=== PATIENT | male | born 1995 | race Caucasian/White ===

== ENCOUNTER 2020-06-14 20:27 | Emergency (ER) | payer SELFPAY ==
[2020-06-14 20:40] VITALS: BP 172/87; PULSE 72; RESP 14; TEMP 36.5; O2SAT 96; BMI 18.1
--- NOTE | 2020-06-14 21:47 | XRR_ITS ---
PROCEDURE INFORMATION: Exam: XR Abdomen, 1 View Exam date and time: 06/14/2020 9:56 PM Age: 24 years old Clinical indication: Localized; Patient HX: Left sided abdominal pain x 2 days TECHNIQUE: Imaging protocol: XR of the abdomen. Views: Frontal supine view of the abdomen. 1 View. COMPARISON: No relevant prior studies available. FINDINGS: Gastrointestinal tract: Normal. No bowel dilation. Bones/joints: Unremarkable. XR/XR [id number] IMPRESSION: No acute findings.
--- NOTE | 2020-06-14 21:54 | W.ED.ABDPA2 ---
HPI - Abdominal Pain General: Chief Complaint: Abdominal Pain Stated Complaint: left side issue Time Seen by Provider: 06/14/20 21:46 History of Present Illness: HPI narrative: 24-year-old male patient presents to the emergency department with complaints of left side abdominal pain. He reports pain for the past several weeks on and off. States pain comes and goes, reports pain was presents earlier but now resolved. States drinking fifth of whiskey almost daily for the past several months. Reports increased abdominal pain since use of magnesium citrate with vitamin D supplement. He denies fever chills, nausea vomiting. Denies recent use of antibiotics. MD elicited complaint: abdominal pain and flank pain (left) Pertinent past history: other (loose stool) Pain Consistency: intermittent Location: LLQ Severity: mild Quality: cramping and aching Migration to: LLQ and L flank Associated Symptoms: Reports change in bowel habits and change in stool character; Denies chills, diarrhea, dysuria, fever(s), heartburn and hematochezia Review of Systems General: Reports: 10 or more systems reviewed and unremarkable except in HPI and below Const: Denies: fever(s), chills, body aches, fatigue or malaise Eyes: Denies: blurry vision or eye redness ENMT: Denies: throat pain, dental pain or disequilibrium Card: Denies: chest pain, palpitations or irregular heart rhythm Resp: Denies: dyspnea, productive cough, non-productive cough or wheezing GI: Reports: change in bowel habits and change in stool character; Denies: heartburn, diarrhea or hematochezia : Denies: dysuria Musc: Denies: neck pain or back pain Skin/Breast: Denies: rash or pruritus Neuro: Denies: headache(s), weakness in extremities or behavioral changes Psych: Denies: anxiety or depression Rayshawn/Lymph: Denies: easy bruising PFSH ED PFSH: Social History Smoking and tobacco status: current every day smoker Physical Exam Const: COMMON NORMALS: no acute distress, patient oriented x3, healthy appearing and alert GENERAL APPEARANCE: cooperative, comfortable and well hydrated HENMT: COMMON NORMALS: normocephalic, Normal external nose present and moist oral mucous membranes HEAD & SCALP: normocephalic NOSE: Normal external nose present Eye: COMMON NORMALS: Equal, round and reactive pupils present and EOMs intact bilaterally GENERAL EYE: appearance normal, both eyes and all related structures PUPIL: Yes Equal, round and reactive pupils present Neck/C-Spine: COMMON NORMALS: full ROM and no lymphadenopathy GENERAL: Yes normal visual inspection and Yes trachea midline CERVICAL SPINE: Yes cervical ROM normal Lymph: LYMPHATIC: no lymphadenopathy noted Chest: COMMONS NORMALS: normal inspection of the chest Resp: COMMON NORMALS: normal respiratory effort and clear to auscultation bilaterally AUSCULTATION: clear to auscultation bilaterally Cardio: COMMON NORMALS: regular rhythm, S1 normal heart sound present, S2 normal heart sound present and Peripheral pulses 2+ throughout RHYTHM: regular rhythm HEART SOUNDS: S1 normal heart sound present and S2 normal heart sound present PERIPHERAL PULSES: Peripheral pulses 2+ throughout GI: COMMON NORMALS: Soft to palpation and non-tender INSPECTION: Yes normal to inspection PALPATION: Yes Soft to palpation, No Guarding due to palpation present (GI), No Hepatosplenomegaly present, No Splenomegaly present, No Rebound tenderness present and Yes Other GI palpation findings present (unable to reproduce pain to abdomen with palpation) : COMMON NORMALS: Yes no CVA tenderness BLADDER/KIDNEY EXAM: Yes no CVA tenderness Back/Pelvis: COMMON NORMALS: no CVA tenderness and thoracic and lumbar spine normal to inspection Extremity: COMMON NORMALS: normal to inspection and capillary refill normal Neuro: COMMON NORMALS: patient oriented x3 and no focal motor deficits SENSORIUM/ORIENTATION: Yes alert Psych: COMMON NORMALS: mental status grossly normal, Normal thought process present and cooperative ACTIVITY/MOTOR BEHAVIOR: Yes appropriate eye contact THOUGHT PROCESS: Normal thought process present Skin: COMMON NORMALS: no rashes or lesions noted and turgor normal GENERAL SKIN EXAM: no rashes or lesions noted and turgor normal Course Vital Signs: Vital signs: Vital Signs Temperature 97.7 F 06/14/20 20:40 Pulse Rate 72 06/14/20 23:04 Respiratory Rate 18 06/14/20 23:04 Blood Pressure 130/72 06/14/20 23:04 Pulse Oximetry 98 06/14/20 23:04 MDM - Abdominal Pain Lab Data: Labs: Lab Results 06/14/20 06/14/20 06/14/20 Range/Units 22:00 22:00 22:00 WBC 12.7 H (4.0-10.0) 10^3/ uL RBC 5.64 H (4.1-5.3) 10^6/u L Hgb 16.0 (11.7-16.6) g/dL Hct 47.6 (42.0-52.0) % MCV 84.4 (80-94) fL MCH 28.4 (28.0-34.0) pg MCHC 33.6 (30.0-36.0) g/dL RDW 12.0 L (12.1-15.1) % Plt Count 266 (130-400) 10^3/c mm MPV 11.0 H (7.4-10.4) fL Neut % (Auto) 59.7 % Lymph % (Auto) 28.9 % Whiteside % (Auto) 7.2 % Eos % (Auto) 3.4 % Baso % (Auto) 0.6 % Neut # (Auto) 7.55 (1.8-7.7) 10^3/u L Lymph # (Auto) 3.7 (0.8-4.8) 10^3/u L Whiteside # (Auto) 0.9 (0.2-0.9) 10^3/u L Eos # (Auto) 0.4 (0.0-0.8) 10^3/u L Baso # (Auto) 0.1 (0.0-0.1) 10^3/u L Nucleated RBC % (a uto) 0 % Nucleated RBCs # 0.0 /100WBC Sodium 138 (136-145) mmol/L Potassium 3.9 (3.5-5.1) mmol/L Chloride 97 L (98-107) mmol/L Carbon Dioxide 29 (22-29) mmol/L Anion Gap 15.9 (5-19) BUN 14 (6-20) mg/dL Creatinine 0.9 (0.7-1.2) mg/dL GFR Calculation 103.7 (90-130) mL/min Glucose 104 (65-115) mg/dL Calculated Osmolal ity 287 (285-295) mOsm/k g Calcium 10.4 (8.5-10.5) mg/dL Total Bilirubin 0.6 (0.15-1.2) mg/dL AST 23 (0-40) U/L ALT 19 (0-41) U/L Alkaline Phosphata se 55 (40-130) IU/L Total Protein 8.4 (6.6-8.7) g/dL Albumin 5.2 (3.5-5.2) g/dL Globulin 3.2 (1.3-4.6) g/dL Lipase 11 L (13-60) U/L Urine Color Yellow (Yellow) Urine Appearance Sl cloudy A (CLEAR) Urine pH 7 (5-7) Ur Specific Gravit y 1.015 (1.005-1.030) Urine Protein Neg (Negative) Urine Glucose (UA) Norm (Normal) Urine Ketones Negative (Negative) Urine Blood Neg (Negative) Urine Nitrate Negative (Negative) Urine Bilirubin Neg (Negative) Urine Urobilinogen Norm (Negative) mg/dL Ur Leukocyte Pretty ase Negative (Negative) Urine RBC None (0-2) /hpf Urine WBC None (0-5) /hpf Ur Squamous Epith Cells None (0-5) /hpf Amorphous Sediment 4+ /hpf Urine Bacteria Trace (NONE) /hpf Discharge Plan Discharge Patient Disposition: Home Clinical Impression: Abdominal pain Qualifiers: Abdominal location: left upper quadrant Qualified Code(s): R10.12 - Left upper quadrant pain Alcoholic gastritis Qualifiers: Chronicity: acute Gastritis bleeding: without bleeding Qualified Code(s): K29.20 - Alcoholic gastritis without bleeding Condition: Stable Prescriptions: New Pepcid 20 mg tablet 20 mg PO BID Qty: 30 RF: 0 Discharge Orders: Discharge Order (Routine); Ordered 06/14/20 Ordered By: Modesta Darnell Discharge Activity: Resume usual activity Patient Instructions: Gastritis (ED), Abuse of Alcohol (ED), Abdominal Pain (ED) Activity Restrictions/Additional Instructions: Return to the emergency department if you develop nausea vomiting Stop mag citrate with vitamin D as this can cause abdominal pain/cramping and loose stool May take [id number] vitamin D supplement without other additives, take as directed on bottle Avoid alcohol as this can cause stomach upset. Take Pepcid 20 minutes prior to each meal. Avoid fried greasy fatty foods until stomach/abdominal pain improves. Return to the emergency department if you develop worsening abdominal pain, nausea vomiting or blood in stool. Discharge Date/Time: 06/14/20 23:05 Coding Level of Care Code ED Mens Locker Room Attendant for Chg Fwd Exam Comprehensive
[2020-06-14 22:06] LABS: Basophils # 0.1 10^3/uL (0.0-0.1); Basophils % 0.6 %; Eosinophils # 0.4 10^3/uL (0.0-0.8); Eosinophils % 3.4 %; Hematocrit 47.6 % (42.0-52.0); Lymphocytes # 3.7 10^3/uL (0.8-4.8); Lymphocytes % 28.9 %; Mean Corpuscular HGB Conc 33.6 g/dL (30.0-36.0); Mean Corpuscular Hemoglobin 28.4 pg (28.0-34.0); Mean Corpuscular Volume 84.4 fL (80-94); Monocytes # 0.9 10^3/uL (0.2-0.9); Monocytes % 7.2 %; Neutrophils # 7.55 10^3/uL (1.8-7.7); Neutrophils % 59.7 %; Nucleated Red Blood Cells % 0 %; Platelet Count 266 10^3/cmm (130-400); Red Blood Count 5.64 10^6/uL (4.1-5.3); White Blood Count 12.7 10^3/uL (4.0-10.0)
[2020-06-14 22:16] LABS: Urine Color Yellow (Yellow)
[2020-06-14 22:17] LABS: Add Urine Microscopic? YES; Bilirubin Urine Neg (Negative); Blood Urine Neg (Negative); Glucose Urine UA Norm (Normal); Ketones Urine Negative (Negative); Leukocyte Esterase Urine Negative (Negative); Nitrate Urine Negative (Negative); Protein Urine Neg (Negative); Specific Gravity, Urine 1.015 (1.005-1.030); Urobilinogen Urine Norm (Negative); pH Urine 7 (5-7)
[2020-06-14 22:22] LABS: Add Urine Culture? No; Amorphous Sediment Urine 4+ /hpf; Bacteria Urine TRACE /hpf
[2020-06-14 22:26] LABS: Alanine Aminotransferase 19 U/L (0-41); Albumin Level 5.2 g/dL (3.5-5.2); Alkaline Phosphatase 55 IU/L (40-130); Anion Gap 15.9 (5-19); Aspartate Amino Transferase 23 U/L (0-40); Blood Urea Nitrogen 14 mg/dL (6-20); Calcium 10.4 mg/dL (8.5-10.5); Carbon Dioxide 29 mmol/L (22-29); Chloride 97 mmol/L (98-107); Creatinine Clr Calc Pharmacy 105.5582; Globulin 3.2 g/dL (1.3-4.6); Glomerular Filtration Rate 103.7 mL/min (90-130); Glucose 104 mg/dL (65-115); Lipase 11 U/L (13-60); Osmolality Calculated 287 mOsm/kg (285-295); Potassium 3.9 mmol/L (3.5-5.1); Sodium 138 mmol/L (136-145); Total Bilirubin 0.6 mg/dL (0.15-1.2); Total Protein 8.4 g/dL (6.6-8.7)
[2020-06-14 23:04] VITALS: BP 130/72; PULSE 72; RESP 18; O2SAT 98
== END 2020-06-14 23:05 | disposition home or self-care (01) ==
PROVIDERS: Emergency Provider Nurse Practitioner Family
DX: K29.20 Alcoholic gastritis without bleeding (principal); F17.210 Nicotine dependence, cigarettes, uncomplicated
CPT/HCPCS: 12345; 74018; 80053; 81001; 83690; 85025; 99282; 99283

== ENCOUNTER → 2020-07-01 15:43 | Outpatient (BNVA) | payer OTHER, SELFPAY | PROVIDERS: Visit Provider Nurse Practitioner Family | DX: Z20.828 Contact with and (suspected) exposure to other viral communicable diseases (principal); J06.9 Acute upper respiratory infection, unspecified | CPT/HCPCS: 87635 ==

== ENCOUNTER 2020-08-07 18:57 | Emergency (ER) | payer OTHER, SELFPAY ==
[2020-08-07 19:06] VITALS: BP 130/78; PULSE 85; RESP 15; TEMP 36.8; O2SAT 98; BMI 18.8
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
== END 2020-08-07 19:46 | disposition home or self-care (01) ==
PROVIDERS: Emergency Provider Nurse Practitioner Family
DX: Z72.51 High risk heterosexual behavior (principal); F17.210 Nicotine dependence, cigarettes, uncomplicated
CPT/HCPCS: 12345; 99281

== ENCOUNTER → 2020-09-14 15:35 | Outpatient (BNVA) | payer SELFPAY | PROVIDERS: Visit Provider Nurse Practitioner | DX: Z20.2 Contact with and (suspected) exposure to infections with a predominantly sexual mode of transmission (principal) | CPT/HCPCS: 81000; 87491; 87591 ==

== ENCOUNTER → 2021-04-21 18:18 | Outpatient (BNVA) | payer SELFPAY | PROVIDERS: Visit Provider Registered Nurse Neonatal Intensive Care | DX: S99.921A Unspecified injury of right foot, initial encounter (principal); X58.XXXA Exposure to other specified factors, initial encounter | CPT/HCPCS: 73630 ==

== ENCOUNTER → 2021-05-01 12:43 | Outpatient (BNVA) | payer OTHER, SELFPAY | PROVIDERS: PCP Family Medicine; Visit Provider Registered Nurse Neonatal Intensive Care | DX: Z20.822 Contact with and (suspected) exposure to COVID-19 (principal) | CPT/HCPCS: 87635 ==

== ENCOUNTER 2021-08-01 13:18 | Emergency (ER) | payer SELFPAY ==
[2021-08-01 13:30] VITALS: PULSE 84; RESP 18; TEMP 36.8; O2SAT 96; BMI 23.5
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
[2021-08-01 14:28] VITALS: BP 132/81; PULSE 84; RESP 18; O2SAT 96
[2021-08-01 16:01] VITALS: BP 131/74; PULSE 81; RESP 16; O2SAT 99
[2021-08-01 16:37] VITALS: PULSE 72; O2SAT 98
--- NOTE | 2021-08-03 12:27 | PC.SOCIAL ---
Referral from ED provider for patient to be seen by opthamology for orbital floor fx and laceration of eye duct. Called patient and he is okay for this to be scheduled. Called Dr Goetz and they could get him in today at 4pm but would be required to pay the $90 charge for the initial visit. Called patient and he indicates he has to go to work at 4 so cant go to appt. explained that it may be a week or two before he can be seen. He is okay with this. Called clinic back and patient is scheduled for 08/16/2021 at 8:30am. Tried to reach patient but no answer and unable to leave message. Will try back tomorrow.
== END 2021-08-01 16:35 | disposition home or self-care (01) ==
PROVIDERS: Emergency Provider Physician Assistant
DX: S02.32XA Fracture of orbital floor, left side, initial encounter for closed fracture (principal); S02.2XXA Fracture of nasal bones, initial encounter for closed fracture; S01.81XA Laceration without foreign body of other part of head, initial encounter; F17.210 Nicotine dependence, cigarettes, uncomplicated; Y04.2XXA Assault by strike against or bumped into by another person, initial encounter
CPT/HCPCS: 70486; 99283

== ENCOUNTER 2022-01-06 16:22 | Emergency (ER) | payer SELFPAY ==
[2022-01-06 16:27] VITALS: BP 148/78; PULSE 66; RESP 14; TEMP 36.6; O2SAT 96
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
--- NOTE | 2022-01-06 17:10 | W.ED.GENADLT ---
HPI - General Adult General: Chief complaint: General Medical Stated complaint: Feels like trimmers in his head with pains Time Seen by Provider: 01/06/22 17:10 History of Present Illness: 26-year-old male patient comes in today with abnormal sensation behind the left ear. 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 Patient reports no residual symptoms but over the last week he has had increasing discomfort and episodes of dizziness to the left side of his head. Patient does report increase in stress. Associated symptoms: Reports rash; Deny chest pain or dyspnea Review of Systems General: Reports: 10 or more systems reviewed and unremarkable except in HPI and below Const: Denies: fever(s) Card: Denies: chest pain Resp: Denies: dyspnea Musc: Denies: neck pain Skin/Breast: Reports: rash Neuro: Reports: dizziness PFS ED PFSH: Social History Smoking and tobacco status: current every day smoker Physical Exam Const: COMMON NORMALS: no acute distress and alert HENMT: COMMON NORMALS: Normal external nose present HEAD & SCALP: normal to inspection NOSE: Normal external nose present MOUTH: Normal oral and palatal mucosa present THROAT: posterior oropharynx normal Eye: COMMON NORMALS: Equal, round and reactive pupils present and EOMs intact bilaterally PUPIL: Yes Equal, round and reactive pupils present Neck/C-Spine: COMMON NORMALS: full ROM and no meningeal signs Resp: COMMON NORMALS: normal respiratory effort Cardio: COMMON NORMALS: regular rate and regular rhythm RATE: regular rate RHYTHM: regular rhythm GI: COMMON NORMALS: non-tender : COMMON NORMALS: Yes no CVA tenderness BLADDER/KIDNEY EXAM: Yes no CVA tenderness Back/Pelvis: COMMON NORMALS: no CVA tenderness and thoracic and lumbar spine normal to inspection Neuro: SENSORIUM/ORIENTATION: Yes alert MENINGEAL SIGNS: Yes no meningeal signs Skin: RASHES: other (Lacy rash to the chest wall, back, and upper extremities) Course Vital Signs: Vital signs: Vital Signs Temperature 97.8 F 01/06/22 16:27 Pulse Rate 66 01/06/22 16:27 Respiratory Rate 14 01/06/22 16:27 Blood Pressure 148/78 01/06/22 16:27 Pulse Oximetry 96 01/06/22 16:27 MDM - General Adult Medical Decision Making 26-year-old male patient comes in today for concerns of dizziness. Patient reports that he had a traumatic brain injury with skull fracture about 6 years ago. Over last couple weeks he has felt abnormal sensation high in the left ear where he had a fracture of the skull. Patient appears well. Vital signs are normal except for some mild elevation in blood pressure. Skin was warm and dry. No focal neurodeficits were noted. Incidentally it was noted that patient had a versicolor rash to his torso. Differential diagnosis includes postconcussion syndrome, TBI, anxiety. CT of the head noted no abnormalities. I personally think patient probably has some anxiety and his exhibiting some somatic symptoms due to this extra stress. It may be residual postconcussion syndrome from his injury. I discussed this with patient who reported understanding and will follow up with primary care for further evaluation. I also treated patient for his tinea versicolor with some fluconazole 300 mg weekly for 2 weeks I did write enough for repeat dosing in a month if needed. Patient reported understanding of care plan need for follow-up or return to the ER. Lab Data Radiology Impressions Head CT 01/06/22 17:10 IMPRESSION: No acute intracranial abnormality. Discharge Plan Discharge Patient Disposition: Home Clinical Impression: Post-concussion vertigo, Tinea versicolor Condition: Stable Prescriptions: New fluconazole 150 mg tablet 300 mg PO .weekly Qty: 8 0RF Discharge Orders: Discharge ED (Routine); Ordered 01/06/22 Ordered By: Tyson Quiñones Discharge Diet: Usual diet Discharge Activity: Increase activity as tolerated Patient Instructions: Post Concussion Syndrome (ED) Activity Restrictions/Additional Instructions: Home and rest. Drink plenty of fluids. Use acetaminophen or ibuprofen for pain. Try to take time for yourself to avoid excess stress as this may aggravate symptoms. Follow-up with primary care for further instruction and evaluation. For your rash take 2 tablets of the fluconazole weekly for 2 weeks. Repeat the dosing schedule in 1 month for persistent symptoms. Return to ER for new concerns. Coding Level of Care Code ED Senior Director [employer] for [facility] Exam Comprehensive
== END 2022-01-06 20:02 | disposition home or self-care (01) ==
PROVIDERS: Emergency Provider Nurse Practitioner Family
DX: R42 Dizziness and giddiness (principal); B36.0 Pityriasis versicolor
CPT/HCPCS: 70450; 99283